=== PATIENT | male | born 1950 | race Caucasian/White ===

== ENCOUNTER → 2016-10-19 | Outpatient (REF) | payer BC ==
[2016-10-19 14:08] LABS: ALBUMIN 4.4 GM/DL (3.2-5.2); ALBUMIN/GLOBULIN RATIO 1.47 (1.00-1.93); ALKALINE PHOSPHATASE 136 U/L (45-117); ALT/SGPT 57 U/L (12-78); ANION GAP 8 MEQ/L (8-16); AST/SGOT 32 U/L (15-37); BILIRUBIN,TOTAL 0.5 MG/DL (0.2-1.0); BLOOD UREA NITROGEN 16 MG/DL (7-18); CALCIUM LEVEL 9.1 MG/DL (8.8-10.2); CARBON DIOXIDE LEVEL 29 MEQ/L (21-32); CHLORIDE LEVEL 106 MEQ/L (98-107); CREATININE FOR GFR 1.01 MG/DL (0.70-1.30); GLOMERULAR FILTRATION RATE > 60.0 (>49); GLUCOSE, FASTING 110 MG/DL (80-110); POTASSIUM SERUM 4.4 MEQ/L (3.5-5.1); SODIUM LEVEL 143 MEQ/L (136-145); TOTAL PROTEIN 7.4 GM/DL (6.4-8.2)
== END ==
LOC: M SFHCPLAZ 09:36
PROVIDERS: ATTEND Family Medicine
DX: Z87.19 Personal history of other diseases of the digestive system (principal)

== ENCOUNTER → 2016-11-29 | Outpatient (CLI) | payer BC ==
--- NOTE | 2016-11-29 09:00 | REP ---
Clinical: Hypertension and chronic medical renal disease. Technique: Jiménez scale and color Doppler evaluation of the kidneys and renal vasculature using curved array transducer. Findings: The kidneys are essentially normal in contour, size, echogenicity and reniform shape without hydronephrosis, nephrolithiasis, or renal mass lesion. Right kidney measures 11.4 x 5.0 x 5.8 cm with multiple cysts measuring up to 2.8 and 2.9 cm maximal diameter . Left kidney measures 12.6 x 4.8 x 5.6 cm and without cystic changes . Bladder is incompletely distended and grossly normal by current evaluation. The prostate gland is enlarged and measures 6.2 x 5.1 x 5.5 cm (90 ml). Color Doppler evaluation of the renal vasculature demonstrates normal arterial wave patterns, velocities, renal aortic ratios, resistive indices and the acceleration time. No sonographic evidence for renal arterial stenosis noted. Renal vein is patent. Right Kidney: Peak arterial velocity: 129.3 cm/sec . Renal aortic ratio: 0.7 . Resistive indices: 0.62 - 0.67 . Acceleration times: 0.023 - 0.025 . Left kidney: Peak arterial velocity: 194 cm/sec . Renal aortic ratio: 1.0 . Resistive indices: 0.67 - 0.69 . Acceleration times: 0.020 - 0.025 . Impression: 1. Right renal cysts measuring up to 2.8 and 2.9 cm maximal diameter. 2. No evidence for renal arterial stenosis. Signed by Gus Marques MD 11/29/2016 08:50 A
== END ==
LOC: M RAD 07:44
PROVIDERS: ATTEND Internal Medicine Cardiovascular Disease
DX: I10 Essential (primary) hypertension (principal); N28.1 Cyst of kidney, acquired

== ENCOUNTER → 2018-01-06 | Outpatient (CLI) | payer BC ==
[2018-01-06 12:10] LABS: HEMATOCRIT 41.1 % (42.0-52.0); HEMOGLOBIN 14.3 g/dl (13.5-17.5); MEAN CORPUSCULAR HEMOGLOBIN 32.1 pg (27.0-33.0); MEAN CORPUSCULAR HGB CONC 34.8 g/dl (32.0-36.5); MEAN CORPUSCULAR VOLUME 92.2 fl (80.0-96.0); PLATELET COUNT, AUTOMATED 142 10^3/uL (150-450); RED BLOOD COUNT 4.46 10^6/uL (4.30-6.10); RED CELL DISTRIBUTION WIDTH 12.7 % (11.5-14.5)
[2018-01-06 12:21] LABS: POSITIVE MORPH POS FLAG
[2018-01-06 12:22] LABS: ADD MANUAL DIFFER YES; DIFF SLIDE NUMBER 207
[2018-01-06 12:27] LABS: ALBUMIN 3.4 GM/DL (3.2-5.2); ALBUMIN/GLOBULIN RATIO 1.13 (1.00-1.93); ALKALINE PHOSPHATASE 109 U/L (45-117); ALT/SGPT 30 U/L (12-78); ANION GAP 9 MEQ/L (8-16); AST/SGOT 22 U/L (7-37); BILIRUBIN,TOTAL 2.1 MG/DL (0.2-1.0); BLOOD UREA NITROGEN 22 MG/DL (7-18); CARBON DIOXIDE LEVEL 28 MEQ/L (21-32); CHLORIDE LEVEL 99 MEQ/L (98-107); GLOMERULAR FILTRATION RATE 53.8 (>49); GLUCOSE, FASTING 140 MG/DL (70-100); POTASSIUM SERUM 3.5 MEQ/L (3.5-5.1); SODIUM LEVEL 136 MEQ/L (136-145); TOTAL PROTEIN 6.4 GM/DL (6.4-8.2)
[2018-01-06 13:25] LABS: BANDS 10 % (< 11); LYMPHOCYTES 3 % (16-52); MONOCYTES 7 % (0-8); NEUTROPHILS 80 % (35-75); PLATELET ESTIMATE DECREASED (NORMAL)
== END ==
LOC: M WUC 10:53
DX: R05 Cough (principal); R09.02 Hypoxemia
CPT/HCPCS: 80053

== ENCOUNTER → 2018-08-07 | Outpatient (REF) | payer OTHER ==
[2018-08-07 12:42] LABS: ANION GAP 8 MEQ/L (8-16); BLOOD UREA NITROGEN 14 MG/DL (7-18); CALCIUM LEVEL 8.9 MG/DL (8.8-10.2); CARBON DIOXIDE LEVEL 25 MEQ/L (21-32); CHLORIDE LEVEL 109 MEQ/L (98-107); CHOLESTEROL LEVEL 194 MG/DL (<200); CHOLESTEROL RISK RATIO 4.511 (<5); GLOMERULAR FILTRATION RATE > 60.0 (>49); GLUCOSE, FASTING 102 MG/DL (70-100); HDL CHOLESTEROL 43 MG/DL (>40); LDL CHOLESTEROL 109 MG/DL (<100); NON-HDL-C 151 MG/DL; POTASSIUM SERUM 4.8 MEQ/L (3.5-5.1); PSA SCREENING 2.5 NG/ML (< 4.0); SODIUM LEVEL 142 MEQ/L (136-145); TRIGLYCERIDES LEVEL 208 MG/DL (<150)
[2018-08-07 12:56] LABS: MALB URINE SIEMENS 14.1 MG/L; MAU/CREAT RATIO 9.2 MCG/MG (0.0-30.0)
[2018-08-07 14:17] LABS: ESTIMATED AVERAGE GLUCOSE 108 MG/DL (60-110); HEMOGLOBIN A1c 5.4 %
== END ==
LOC: M SFHCPLAZ 08:35
DX: Z00.00 Encounter for general adult medical examination without abnormal findings (principal)
CPT/HCPCS: 83036

== ENCOUNTER → 2018-09-26 | Outpatient (REF) | payer BC ==
[2018-09-26 11:32] LABS: BASO % 0.6 % (0.0-1.0); EOS # 0.1 10^3/uL (0.0-0.50); EOS % 2.1 % (0.0-3.0); HEMATOCRIT 46.9 % (42.0-52.0); HEMOGLOBIN 15.9 g/dl (13.5-17.5); LYMPH # 1.3 10^3/uL (1.5-4.5); LYMPH % 25.2 % (24.0-44.0); MEAN CORPUSCULAR HGB CONC 33.9 g/dl (32.0-36.5); MEAN CORPUSCULAR VOLUME 94.4 fl (80.0-96.0); MONO # 0.5 10^3/uL (0.0-0.8); MONO % 8.9 % (0.0-5.0); NEUTROPHILS # 3.3 10^3/uL (1.8-7.7); NEUTROPHILS % 62.8 % (36.0-66.0); PLATELET COUNT, AUTOMATED 154 10^3/uL (150-450); RED BLOOD COUNT 4.97 10^6/uL (4.30-6.10); WHITE BLOOD COUNT 5.3 10^3/uL (4.0-10.0)
[2018-09-26 11:41] LABS: ALBUMIN 4.2 GM/DL (3.2-5.2); ALT/SGPT 55 U/L (12-78); BILIRUBIN,TOTAL 0.7 MG/DL (0.2-1.0); BLOOD UREA NITROGEN 14 MG/DL (7-18); CALCIUM LEVEL 8.9 MG/DL (8.8-10.2); CARBON DIOXIDE LEVEL 28 MEQ/L (21-32); CHLORIDE LEVEL 107 MEQ/L (98-107); CREATININE FOR GFR 0.92 MG/DL (0.70-1.30); FERRITIN 511 NG/ML (26-388); GLOMERULAR FILTRATION RATE > 60.0 (>49); GLUCOSE, FASTING 107 MG/DL (70-100); IRON (FE) 115 UG/DL (65-175); PERCENT SATURATION 43.7 % (19.7-50.0); POTASSIUM SERUM 4.4 MEQ/L (3.5-5.1); SODIUM LEVEL 141 MEQ/L (136-145); TOTAL IRON BINDING CAPACITY 263 UG/DL (250-450); TOTAL PROTEIN 6.9 GM/DL (6.4-8.2)
[2018-09-26 11:45] LABS: INR 1.03; PROTHROMBIN TIME 13.6 SECONDS (12.1-14.4)
== END ==
LOC: M SFHCPLAZ 08:39
PROVIDERS: ATTEND Family Medicine
DX: K74.60 Unspecified cirrhosis of liver (principal); E83.10 Disorder of iron metabolism, unspecified

== ENCOUNTER → 2018-09-29 | Outpatient (CLI) | payer BC, MEDICARE ==
--- NOTE | 2018-09-29 07:56 | REP ---
Clinical: Screening for abdominal aortic aneurysm. Technique: Real time borrero scale ultrasound examination using curved array transducer. Findings: Abdominal aorta demonstrates moderate atheromatous plaquing without evidence for aneurysm. No periaortic fluid collections are identified. Incidental findings include diffuse fatty infiltration to the liver with vague heterogeneous hypoechoic area with in the posterior right lobe likely representing fatty sparing and less likely hepatic mass. Proximal aorta 2.3 x 2.1 cm. Mid aorta (renal artery level) 2.3 x 2.3 cm. Mid aorta 2.0 x 1.9 cm. Distal aorta 2.4 x 2.1 cm. Right common iliac artery 1.0 cm maximal diameter. Left common iliac artery 1.2 cm maximal diameter. Impression: 1. Atheromatous plaquing without evidence for abdominal aortic aneurysm. 2. Diffuse fatty infiltration to the liver with suspected focal fatty sparing which less likely represents a hepatic mass lesion. Consider complete abdominal ultrasound for more definitive evaluation. Electronically Signed by Gus Marques MD 09/29/2018 07:47 A
== END ==
LOC: M RAD 07:05
PROVIDERS: ATTEND Family Medicine
DX: Z13.6 Encounter for screening for cardiovascular disorders (principal)

== ENCOUNTER → 2018-11-10 | Outpatient (REF) | payer BC ==
[2018-11-10 13:49] LABS: MALB URINE SIEMENS 32.6 MG/L
[2018-11-10 13:56] LABS: BLOOD UREA NITROGEN 19 MG/DL (7-18); CALCIUM LEVEL 8.7 MG/DL (8.8-10.2); CARBON DIOXIDE LEVEL 28 MEQ/L (21-32); CHLORIDE LEVEL 106 MEQ/L (98-107); GLOMERULAR FILTRATION RATE > 60.0 (>49); GLUCOSE, FASTING 85 MG/DL (70-100); POTASSIUM SERUM 4.4 MEQ/L (3.5-5.1); SODIUM LEVEL 141 MEQ/L (136-145); TROPONIN I < 0.02 NG/ML (< 0.10)
== END ==
LOC: M SFHCPLAZ 11:04
PROVIDERS: ATTEND Family Medicine
DX: I16.0 Hypertensive urgency (principal); K74.60 Unspecified cirrhosis of liver

== ENCOUNTER 2019-05-08 09:56 | Emergency (ER) | payer BC ==
[~2019-05-08] VITALS: Ht 177.8 cm; Wt 97.7 kg
[2019-05-08] MEDS ORDERED: ADACEL/BOOSTRIX VACCINE (DIPHTH/PERTUSS/ACELL/TETANUS)0.5ML SYR (90715) IM ONE (11:00)
--- NOTE | 2019-05-08 11:31 | REP ---
PELVIS: AP view of the pelvis is performed and demonstrates lucency in the left pubis superiorly which could represent a nondisplaced fracture. Otherwise, no acute fracture or dislocation is seen. There are degenerative changes of the lower lumbar spine. IMPRESSION: Possible nondisplaced fracture of the left pubis. Electronically Signed by Levi Jiménez MD 05/09/2019
--- NOTE | 2019-05-08 11:32 | REP ---
LEFT HIP: Two views of the left hip are performed. There is possible nondisplaced fracture of the left pubis. There is no fracture of the proximal left femur. There is no dislocation. IMPRESSION: Possible nondisplaced fracture of the left pubis. Electronically Signed by Levi Jiménez MD 05/09/2019
--- NOTE | 2019-05-08 11:49 | REP ---
CT of the head without contrast Indication: Fall, dizzy. Comparison: None Technique: Axial CT of the head was performed without contrast. Findings: There is mild thickening of the scalp posteriorly. There is no calvarial fracture. There is no evidence of acute intracranial hemorrhage or extra-axial fluid collection. Jiménez-white matter differentiation is maintained. There is no mass effect or midline shift. The basal cisterns are patent. There is no hydrocephalus. Note is made intracranial vascular calcification. The visualized paranasal sinuses and mastoid air cells are clear. Impression: No acute intracranial abnormality. Electronically Signed by Angus Hayward MD 05/08/2019 11:40 A
[2019-05-08] MEDS ORDERED: ISOVUE-370 76% 100ML VIAL (Q9967) As Ordered ONE (11:52)
[2019-05-08 11:55] LABS: BASO % 0.3 % (0.0-1.0); EOS # 0.1 10^3/uL (0.0-0.50); EOS % 0.5 % (0.0-3.0); HEMATOCRIT 41.7 % (42.0-52.0); HEMOGLOBIN 14.5 g/dl (13.5-17.5); LYMPH # 0.8 10^3/uL (1.5-4.5); LYMPH % 7.8 % (24.0-44.0); MEAN CORPUSCULAR HEMOGLOBIN 32.9 pg (27.0-33.0); MEAN CORPUSCULAR HGB CONC 34.8 g/dl (32.0-36.5); MEAN CORPUSCULAR VOLUME 94.6 fl (80.0-96.0); MONO # 0.8 10^3/uL (0.0-0.8); NEUTROPHILS # 8.5 10^3/uL (1.8-7.7); PLATELET COUNT, AUTOMATED 116 10^3/uL (150-450); RED BLOOD COUNT 4.41 10^6/uL (4.30-6.10); WHITE BLOOD COUNT 10.3 10^3/uL (4.0-10.0)
--- NOTE | 2019-05-08 12:05 | REP ---
CT PELVIS WITHOUT CONTRAST: CT pelvis performed without IV contrast. Sagittal and coronal reconstruction images performed. There is a nondisplaced fracture of the left pubis medially. There is also a nondisplaced fracture of the left ischium anteriorly near the acetabulum. There is a nondisplaced fracture of the left sacrum. There is no other evidence of fracture or dislocation. The proximal femurs are intact. There is no dislocation. There are degenerative changes of the lower lumbar spine. Incidental note is made of a small left inguinal hernia containing fat. IMPRESSION: Nondisplaced fractures of the left pubis, anterior left ischium near the acetabulum, and left sacrum. Electronically Signed by Levi Jiménez MD 05/09/2019 12:02 A
[2019-05-08] MEDS ORDERED: NORC1TAB7 PO (13:02)
[2019-05-08] MEDS ORDERED: NORCO, ANEXSIA 5/325MG TABLET (HYDROcodone/ACETAMINOPHEN) PO ONE (13:15)
[2019-05-08 13:23] VITALS: BP 125/75
--- NOTE | 2019-05-08 13:26 | REP ---
CT ABDOMEN AND PELVIS WITH IV CONTRAST: TECHNIQUE: Axial contrast enhanced images from the lung bases to the pubic symphysis using 100 mL Isovue 370 intravenous contrast material with multiplanar reformations. Visualized lung bases demonstrate no acute infiltrate or other acute finding. Liver, gallbladder, spleen, adrenals, and pancreas are unremarkable with no traumatic finding. There are multiple right renal cysts. There is a small cyst in the upper pole of the left kidney. There is no hydronephrosis. There is atherosclerotic calcification of the abdominal aorta without aneurysm. There is on adenopathy. There is no free air or free fluid. No bowel wall thickening is seen. There is mild asymmetric enlargement of the left obturator internus muscle suggesting a mild intramuscular hematoma. Urinary bladder is mildly distended and grossly unremarkable. Prostate appears somewhat enlarged. There is a small left inguinal hernia containing fat. There is a small umbilical hernia containing fat. There are degenerative changes of the spine without compression fracture. Note is again made of nondisplaced fractures of the left sacrum, left pubis, and anterior left ischium. IMPRESSION: Nondisplaced fractures of the left sacrum, left pubis, and anterior left ischium. There appears to be mild intramuscular hematoma involving the left obturator internus muscle. Otherwise no free air or free fluid or other posttraumatic finding. Electronically Signed by Levi Jiménez MD 05/09/2019 12:06 A
== END 2019-05-08 13:26 | disposition home or self-care (01) ==
LOC: M ED 09:56
DX: S32.502A Unspecified fracture of left pubis, initial encounter for closed fracture (principal); S32.602A Unspecified fracture of left ischium, initial encounter for closed fracture; S32.10XA Unspecified fracture of sacrum, initial encounter for closed fracture; W11.XXXA Fall on and from ladder, initial encounter; Y92.098 Other place in other non-institutional residence as the place of occurrence of the external cause; I10 Essential (primary) hypertension
CPT/HCPCS: 70450; 72190; 73502; 74177; 80047; 85025; 90471; 90715; 96374; 96375; 99284; Q9967

== ENCOUNTER → 2019-06-07 | Outpatient (REF) | payer BC ==
[~2019-06-07] MED LIST: NORC1TAB7 PO
[2019-06-07 11:33] LABS: BLOOD UREA NITROGEN 18 MG/DL (7-18); CALCIUM LEVEL 8.8 MG/DL (8.8-10.2); CARBON DIOXIDE LEVEL 27 MEQ/L (21-32); CHLORIDE LEVEL 109 MEQ/L (98-107); GLOMERULAR FILTRATION RATE > 60.0 (>49); GLUCOSE, FASTING 99 MG/DL (70-100); POTASSIUM SERUM 4.1 MEQ/L (3.5-5.1); SODIUM LEVEL 142 MEQ/L (136-145); TROPONIN I < 0.02 NG/ML (< 0.10)
[2019-06-07 11:41] LABS: MALB URINE SIEMENS 20.6 MG/L; MAU/CREAT RATIO 19.4 MCG/MG (0.0-30.0)
== END ==
LOC: M SFHCPLAZ 09:40
PROVIDERS: ATTEND Family Medicine
DX: I16.0 Hypertensive urgency (principal)

== ENCOUNTER → 2019-08-14 | Outpatient (CLI) | payer BC ==
[2019-08-14 15:07] LABS: ALBUMIN 4.1 GM/DL (3.2-5.2); ALT/SGPT 46 U/L (12-78); BILIRUBIN,TOTAL 0.7 MG/DL (0.2-1.0); BLOOD UREA NITROGEN 20 MG/DL (7-18); CALCIUM LEVEL 9.4 MG/DL (8.8-10.2); CARBON DIOXIDE LEVEL 30 MEQ/L (21-32); CHLORIDE LEVEL 100 MEQ/L (98-107); CHOLESTEROL LEVEL 185 MG/DL (<200); CHOLESTEROL RISK RATIO 3.936 (<5); CREATININE FOR GFR 1.18 MG/DL (0.70-1.30); FREE T4 0.95 NG/DL (0.76-1.46); GLOMERULAR FILTRATION RATE > 60.0 (>49); GLUCOSE, FASTING 148 MG/DL (70-100); HDL CHOLESTEROL 47 MG/DL (>40); HEMOGLOBIN A1c 6.2 %; LDL CHOLESTEROL 96 MG/DL (<100); MAGNESIUM LEVEL 2.2 MG/DL (1.8-2.4); NON-HDL-C 138 MG/DL; POTASSIUM SERUM 3.9 MEQ/L (3.5-5.1); SODIUM LEVEL 138 MEQ/L (136-145); TOTAL PROTEIN 7.6 GM/DL (6.4-8.2); TRIGLYCERIDES LEVEL 211 MG/DL (<150); URIC ACID 5.3 MG/DL (3.5-7.2)
== END ==
LOC: M PLALAB 10:42
PROVIDERS: ATTEND Nurse Practitioner Family
DX: I10 Essential (primary) hypertension (principal); E78.2 Mixed hyperlipidemia; M1A.00X0 Idiopathic chronic gout, unspecified site, without tophus (tophi); Z12.5 Encounter for screening for malignant neoplasm of prostate
CPT/HCPCS: 36415; 80053; 80061; 83036; 83735; 84439; 84443; 84550; G0103

== ENCOUNTER → 2020-06-23 | Outpatient (REF) | payer BC ==
[2020-06-25 10:08] LABS: TESTOSTERONE FREE (DIRECT) 4.7 pg/mL (6.6-18.1)
== END ==
LOC: M SFHCPLAZ 12:26
PROVIDERS: ATTEND Nurse Practitioner Family
DX: E29.1 Testicular hypofunction (principal)

== ENCOUNTER → 2020-08-19 | Outpatient (CLI) | payer SELFPAY | LOC: M LABSMTC 14:40 | PROVIDERS: ATTEND Pediatrics | DX: Z11.59 Encounter for screening for other viral diseases (principal) ==

== ENCOUNTER → 2020-12-22 | Outpatient (REF) | payer BC | LOC: M SFHCPLAZ 11:59 | PROVIDERS: ATTEND Nurse Practitioner Family | DX: I10 Essential (primary) hypertension (principal); R73.01 Impaired fasting glucose; E78.2 Mixed hyperlipidemia; M1A.00X0 Idiopathic chronic gout, unspecified site, without tophus (tophi) ==

== ENCOUNTER → 2021-09-16 | Outpatient (REF) | LOC: M LABSMTC 10:10 | PROVIDERS: ATTEND Pediatrics | DX: Z11.52 Encounter for screening for COVID-19 (principal) ==

== ENCOUNTER → 2022-08-24 | Outpatient (CLI) | payer OTHER, SELFPAY | LOC: M PLALAB 15:27 | PROVIDERS: ATTEND Nurse Practitioner Family | DX: R07.89 Other chest pain (principal) ==

== ENCOUNTER → 2023-11-13 | Outpatient (REF) | payer OTHER | LOC: M LAB REF 18:26 | PROVIDERS: ATTEND Physician Assistant Medical | DX: B34.9 Viral infection, unspecified (principal); R06.02 Shortness of breath; R50.9 Fever, unspecified ==